=== PATIENT | female | born 1970 | race Two or more races ===

== ENCOUNTER 2018-06-30 19:29 | Emergency (ER) | payer OTHER ==
[~2018-06-30] VITALS: Ht 165.1 cm; Wt 83.9 kg
--- NOTE | 2018-06-30 19:39 | NUR ---
Pt ambulates to ER with c/o headache after object (box of granola bars) fell on her head while she was shopping at [employer]. Pt denies loc. [id number]. Sons at bedside.
--- NOTE | 2018-06-30 19:55 | NUR ---
Pt went down to radiology dept for CT scan.
[2018-06-30] MEDS ORDERED: ONDANSETRON ODT 4 MG TAB.RAPDIS SL ONE (20:00)
[2018-06-30] MEDS ORDERED: ACETAMINOPHEN ES 500 MG TABLET PO ONE (20:00)
--- NOTE | 2018-06-30 20:13 | NUR ---
Pt back from radiology dept. No acute distress noted.
[2018-06-30] MEDS ORDERED: ACETAMINOPHEN ES 500 MG TABLET ONE (20:16)
[2018-06-30] MEDS ORDERED: ONDANSETRON ODT 4 MG TAB.RAPDIS ONE (20:17)
[2018-06-30] MEDS ORDERED: HYDROCODONE/APAP 5-325MG TABLET ONE (20:38)
[2018-06-30] MEDS ORDERED: HYDROCODONE/APAP 5-325MG TABLET PO ONE (20:45)
--- NOTE | 2018-06-30 20:51 | NUR ---
Patient discharged to home in stable conditon. Written and verbal after care instructions given. Patient verbalizes understanding of instructions. Pt ambulated out of ER in steady gait accompanied by 2 sons. Pt instructed not to drive home. All belongings with pt. VSS. NAD noted.
[2018-06-30 20:53] VITALS: BP 151/84
== END 2018-06-30 20:55 | disposition home or self-care (01) ==
LOC: ER 19:32
DX: S06.0X0A Concussion without loss of consciousness, initial encounter (principal); F17.200 Nicotine dependence, unspecified, uncomplicated; Z88.1 Allergy status to other antibiotic agents; W22.8XXA Striking against or struck by other objects, initial encounter; Y93.89 Activity, other specified; Y92.89 Other specified places as the place of occurrence of the external cause; Y99.8 Other external cause status
CPT/HCPCS: 70450; A4663; A9150; Q0162